=== PATIENT | male | born 1975 | race Caucasian/White ===

== ENCOUNTER 2016-08-26 22:46 | Emergency (ER) | payer OTHER ==
[~2016-08-26 22:46] MED LIST: BUPR300T51 PO; CYCL10TA9 PO; GEMF600T3 PO; HYDR-656 PO; HYOS0.1281 SL; LORA0.5T PO; ONDA4TAB9 PO; PRE20 PO; PROM25SU46 PO; TRAM50TA2 PO; ZLP10T PO
[2016-08-26 23:25] LABS: BASOPHILS % (AUTO) 0.5 % (0-3); EOSINOPHILS % (AUTO) 1.1 % (0-5); MONOCYTES % (AUTO) 8.6 % (4-12); Mean Corpuscular Hemoglobin 31.5 pg (27.0-35.0); Mean Corpuscular Volume 93.1 fL (81-100); NEUTROPHILS % (AUTO) 70.2 % (40-74); Platelet Count 365 bil/L (150-400)
[2016-08-26 23:30] VITALS: BP 140/101; PULSE 89; RESP 16; O2SAT 96
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
[2016-08-26] MEDS ORDERED: Nitroglycerin 2% 1 Gm Ointment TOPICAL SCH (23:55)
[2016-08-26 23:57] LABS: TROPONIN T 0.01 ug/L (0.0-0.011)
[2016-08-27 00:02] LABS: Magnesium 2.3 mg/dL (1.6-2.6)
[2016-08-27 00:30] VITALS: BP 149/101; PULSE 80; RESP 15; O2SAT 96
[2016-08-27 01:30] VITALS: BP 134/89; PULSE 85; RESP 17; O2SAT 96
[2016-08-27 02:45] VITALS: BP 125/63; PULSE 79; RESP 16; O2SAT 97
--- NOTE | 2016-08-27 08:43 | DRSVH ---
PROCEDURE: X-RAY CHEST ONE VIEW, PORTABLE ([id number]) INDICATIONS: chest pain TECHNIQUE: One view of the chest was acquired. COMPARISON: [facility], , CHEST 1VW (PORTABLE), 07/27/2014, 23:17. FINDINGS: Surgical changes and devices: None. Lungs and pleura: No pleural effusions or pneumothorax. Lungs are clear. Mediastinum: Mediastinal contours appear normal. Heart size is normal. Bones and chest wall: No suspicious bony lesions. Overlying soft tissues appear unremarkable. IMPRESSION: No acute cardiopulmonary disease. Dictated by: Fernie Parker [facility] Interpreted: Brooke Canseco MD on 08/27/2016 at 8:43 Transcribed by: GENEVA on 08/27/2016 at 8:43 Approved by: Brooke Canseco MD, PhD on 08/27/2016 at 12:50
== END 2016-08-27 02:45 | disposition home or self-care (01) ==
LOC: SED 22:46
DX: R07.89 Other chest pain (principal); R06.02 Shortness of breath; R42 Dizziness and giddiness; I10 Essential (primary) hypertension; E78.5 Hyperlipidemia, unspecified
CPT/HCPCS: 36415; 71010; 80053; 83735; 84484; 85025; 85378; 93005; 99285; Q0169

== ENCOUNTER 2016-10-17 14:52 | Emergency (ER) | payer OTHER ==
[~2016-10-17] VITALS: Ht 180.3 cm; Wt 95.5 kg
[2016-10-17 14:54] VITALS: BP 159/100; PULSE 104; RESP 14; O2SAT 99
--- NOTE | 2016-10-17 15:06 | ED.REPORT ---
HPI-Dental/Mouth Prob Date of Service October 17, 2016 ED Provider: Matt Simons MD Patient is a 41 year old male with a history of anxiety, hypertension, hyperlipidemia, and pancreatitis who presents to the ED complaining of dental pain that began 5 days ago. The pain initially began in 1 spot but has grown to 3 different locations. Patient has been unable to make an appointment with a dentist or PCP. He has taken Tylenol and ibuprofen with little relief. Associated symptoms include diaphoresis. He denies fever or chills. Patient was recently seen in the ED on 08/26 for chest pain and was discharged in good condition following reassuring lab work, EKG and chest x-ray. Nursing Notes Stated Complaint: TOOTH PAIN Chief Complaint: Dental Nursing Notes Reviewed: Yes Allergies: Coded Allergies: No Known Allergies (Verified Allergy, Unknown, 10/17/16) Scheduled Bupropion ER (Wellbutrin XL) 300 Mg Tab.er.24h 300 MG PO DAILY Gemfibrozil (Gemfibrozil) 600 Mg Tablet 600 MG PO BID Penicillin V Potassium (Penicillin V Potassium) 500 Mg Tablet 500 MG PO QID Prednisone (PredniSONE) 20 Mg Tablet 40 MG PO DAILY Scheduled PRN Cyclobenzaprine (Cyclobenzaprine) 10 Mg Tablet 10 MG PO HS PRN PRN For Pain Hydrocodone-Acetaminophen 5-325 mg (Hydrocodone-Acetaminophen 5-325 mg) 1 Each Tablet 1 TABLET PO Q4H PRN PRN For Pain Hyoscyamine SL (Levsin SL) 0.125 Mg Tab.subl 0.125 MG SL TID PRN PRN For Pain Lorazepam (Lorazepam) 0.5 Mg Tablet 0.5 MG PO HS PRN PRN For Insomnia Ondansetron ODT (Zofran ODT) 4 Mg Tablet 4 MG PO Q4H PRN PRN For Nausea Tramadol (Tramadol) 50 Mg Tablet 100 MG PO HS PRN PRN For Pain Zolpidem (Ambien) 10 Mg Tab 10 MG PO HS PRN PRN For Insomnia hydrOXYzine Hcl (HydrOXYzine Hcl) 25 Mg Tablet 25 MG PO TID PRN PRN For Itching Miscellaneous Medications Promethazine HCl (Phenergan) 25 Mg Supp.rect 25 MG PO General Time Seen by MD: 15:05 Chief Complaint Tooth pain Hx Obtained From: Patient Arrived By: Walk-in Onset Occurred: 5 days ago Symptom Duration: Since onset Quality: Painful Radiation: : Does not radiate Severity: Current: Moderate Severity: Maximum: Moderate Associated with: Denies: Chills, Fever Pertinent Negative: Pt denies other symptoms Recent Healthcare: No recent doctor visit, No recent hospitalization Past Medical History Past Medical History pancreatitis chronic low back pain depression anxiety ETOH abuse IBS borderline diabetes mellitus h/o of hyperlipidemia, improved since recent weightloss Reports: Hyperlipidemia, Hypertension Past Surgical History None reported. Family History n/a Smoking History Never Smoker Social History Alcohol Use: In recovery Drug Use: Denies drug use Other Social History: Good social support, , Local resident Occupation cook, currently unemployed Ambulatory Status Independent Review of Systems Dental Pain Constitutional: Denies: Chills, Fever GI: Denies: Vomiting Complete sys rev & neg: except as marked. Skin: Reports Diaphoresis, Reports Swelling Physical Exam Initial Vital Signs Vital Signs (First) Date Time Temp Pulse Resp B/P Pulse Ox O2 Delivery O2 Flow Rate FiO2 10/17/16 14:54 37.1 104 14 159/100 99 Initial VS: Reviewed Head / Eyes: Atraumatic, Normocephalic, PERRL Extremities: Vascular intact, Neuro intact, No swelling, No tenderness Skin: Warm, Dry, No cyanosis Neurologic: Alert, Oriented, Nonfocal Psychiatric: Mood/affect normal, Behavior normal, Normal thought content ENT: Atraumatic, Airway patent, Mucous membranes moist, Pharynx NL Dental / Gums: Positive: Decay extensive, Decay single tooth (#17), Dental caries present (Multiple; #16), Dentition poor, Gum swelling, Gum tenderness, Tooth fracture (#17), Negative: Dental abscess (No evidence of dental abscess) ENT: No facial swelling Neck: Atraumatic, Supple, Full range of motion General/Constitutional: Awake, Alert, No acute distress Respiratory / Chest: Atraumatic, Breath sounds NL, Breath sounds = bilat, No respiratory distress Cardiovascular: Heart rate NL, Regular rhythm, Heart sounds NL, No gallop, No murmurs, No rubs, Peripheral circulation NL Abdomen: Atraumatic, Soft, Non-tender, No distention Re-Eval/Medical Decision Med Decision/Clinical Course Patient presents with dental pain. Patient has not seen a dentist in over a year and has multiple dental caries. No evidence of abscess, airway widely patent, no evidence of Lambert angina, no significant medical comorbidities or underlying immunocompromised state. He is working on getting in to see a dentist and is on wait list at [facility] as well as another dentist. He is struggling to get into see a dentist due to lack of insurance though is currently aware of low cost/edis options. Prescribed a limited supply of [place] and course of penicillin. Advised to return for any signs of worsening infection or swelling. Prior to discharge follow-up and return precautions were reviewed in detail with the patient who verbalized understanding and agreement with the plan. The patient was discharged in stable condition. Re-Evaluation/Progress : Time of Eval: 15:14 Patient Status: Condition improved Re-Evaluation/Progress Note: Patient is rechecked. He is informed of his results and diagnosis. All questions are addressed. He understands and agrees with the intended treatment plan. Counseled Regarding: Diagnosis, Need for follow-up, When/why to return to ED Discharge & Departure Primary Impression: Dental caries Additional Impression: Pain, dental Disposition: Home Discharge Condition All VS Reviewed: Yes Condition: Improved Patient Instructions: Dental Caries (ED) Additional Instructions: Thank you for seeking care at the emergency room. It is difficult for us to make definitive diagnoses in the ED but we believe that your symptoms are likely due to your dental caries. You will be discharged with a prescription for penicillin and *[place]. Please take as directed. You should follow-up with your primary doctor in the next few days and I highly recommend your schedule an appointment with a dentist to have your teeth evaluated. You should return to the ED immediately if you develop fevers, vomiting, chills , worsening pain or redness, lightheadedness, weakness or any other concerning signs or symptoms. Thank you for letting us partake in your care today. *You have been prescribed a narcotic for pain relief. These drugs are usually combined with acetaminophen (Tylenol#3, Percocet, Darvocet, Anexsia, Vicodin) or aspirin (Empirin#3, Percodan, Synalogs-DC) for increased effect. Narcotics act on the central nervous system to reduce pain; they also impair mental alertness and physical abilities. We advise you not to drink alcohol, use any other sedative medications, drive a car, or operate dangerous equipment when you are taking these drugs. You can lessen stomach irritation from your medicine by taking it with meals or a full glass of water. Common side effects of narcotics are: Nausea and vomiting , heartburn, constipation, dizziness, sleepiness, and mood changes. If you have bothersome side effects or symptoms of an allergic reaction (itching, hives, rash), stop taking your medicine and call your doctor or the emergency room right away. Please keep your narcotic medicine well out of the reach of children. Referrals: Carmenza Edmonds PA-C (PCP) [facility] Attestation Portions of this note were transcribed by Humberto Neal. I, Dr. Simons personally performed the history, physical exam and medical decision-making; I reviewed and confirmed the accuracy of the information in the transcribed note. Signed by: Henok Dong, 10/17/16 1528. copies to: Carmenza Edmonds PA-C, Beck O MD October 17, 2016 15:06 HUMBERTO NEAL October 17, 2016 15:13
[2016-10-17] MEDS ORDERED: PENI500T PO (15:12)
[2016-10-17] MEDS ORDERED: HYDR-4003 PO (15:12)
== END 2016-10-17 15:14 | disposition home or self-care (01) ==
LOC: SED 14:52
DX: K02.9 Dental caries, unspecified (principal); R61 Generalized hyperhidrosis; E78.5 Hyperlipidemia, unspecified; I10 Essential (primary) hypertension